=== PATIENT | male | born 1970 | race Caucasian/White ===

== ENCOUNTER 2017-07-14 11:44 | Day surgery (SDC) | payer OTHER ==
[2017-07-14] MEDS ORDERED: FENTAnyl 50 MCG/ML VIAL (13:17)
[2017-07-14] MEDS ORDERED: MIDAZOLAM 1 MG/ML 2 ML INJ ×2 (13:17→13:18)
== END 2017-07-14 16:04 | disposition home or self-care (01) ==
LOC: GIL 11:44
DX: Z12.11 Encounter for screening for malignant neoplasm of colon (principal); Z80.0 Family history of malignant neoplasm of digestive organs
CPT/HCPCS: 45378